=== PATIENT | male | born 1955 | race Caucasian/White ===

== ENCOUNTER → 2016-12-22 | Outpatient (CLI) | payer OTHER ==
[~2016-12-22] MED LIST: PENTAMIDINE ISETHIONATE 300MG/6ML INH SYRINGE NEB ONE
== END ==
LOC: FCP 08:22
PROVIDERS: ATTEND Internal Medicine Hematology & Oncology
PROC: 3E0F7GC Introduction of Other Therapeutic Substance into Respiratory Tract, Via Natural or Artificial Opening (ICD-10-PCS; principal; 2016-12-22)
DX: C90.01 Multiple myeloma in remission (principal); C64.9 Malignant neoplasm of unspecified kidney, except renal pelvis; D64.81 Anemia due to antineoplastic chemotherapy
CPT/HCPCS: J2545

== ENCOUNTER → 2017-01-17 | Outpatient (CLI) | payer OTHER | LOC: FIMAGING 16:54 | PROVIDERS: ATTEND Internal Medicine Hematology & Oncology | DX: N28.1 Cyst of kidney, acquired (principal); Z85.528 Personal history of other malignant neoplasm of kidney; Z90.5 Acquired absence of kidney ==

== ENCOUNTER → 2017-03-30 | Outpatient (CLI) | payer OTHER | LOC: FCP 08:26 | PROVIDERS: ATTEND Internal Medicine Hematology & Oncology | DX: D64.81 Anemia due to antineoplastic chemotherapy (principal); C90.01 Multiple myeloma in remission; C64.9 Malignant neoplasm of unspecified kidney, except renal pelvis | CPT/HCPCS: J2545 ==

== ENCOUNTER → 2017-04-27 | Outpatient (CLI) | payer OTHER ==
[~2017-04-27] MED LIST changes: +D5W IV ONE; +PENTAMIDINE ISETHIONATE IV ONE
== END ==
LOC: FCP 08:14
PROVIDERS: ATTEND Internal Medicine Hematology & Oncology
DX: C90.01 Multiple myeloma in remission (principal)
CPT/HCPCS: J2545

== ENCOUNTER → 2017-06-01 | Outpatient (CLI) | payer OTHER ==
[~2017-06-01] MED LIST changes: -D5W IV ONE; -PENTAMIDINE ISETHIONATE IV ONE
== END ==
LOC: FCP 08:04
PROVIDERS: ATTEND Internal Medicine Hematology & Oncology
PROC: 3E0F7GC Introduction of Other Therapeutic Substance into Respiratory Tract, Via Natural or Artificial Opening (ICD-10-PCS; principal; 2017-06-01)
DX: C64.1 Malignant neoplasm of right kidney, except renal pelvis (principal); C90.01 Multiple myeloma in remission; D64.81 Anemia due to antineoplastic chemotherapy
CPT/HCPCS: J2545

== ENCOUNTER → 2017-06-29 | Outpatient (CLI) | payer OTHER | LOC: FCP 08:21 | PROVIDERS: ATTEND Internal Medicine Hematology & Oncology | PROC: 3E0F7GC Introduction of Other Therapeutic Substance into Respiratory Tract, Via Natural or Artificial Opening (ICD-10-PCS; principal; 2017-06-29) | DX: C64.9 Malignant neoplasm of unspecified kidney, except renal pelvis (principal) | CPT/HCPCS: J2545 ==

== ENCOUNTER → 2017-07-27 | Outpatient (CLI) | payer OTHER | LOC: FCP 08:08 | PROVIDERS: ATTEND Internal Medicine Hematology & Oncology | DX: C90.10 Plasma cell leukemia not having achieved remission (principal) | CPT/HCPCS: J2545 ==

== ENCOUNTER → 2017-09-21 | Outpatient (CLI) | payer OTHER | LOC: FCP 08:24 | PROVIDERS: ATTEND Internal Medicine Hematology & Oncology | DX: Z79.899 Other long term (current) drug therapy (principal) | CPT/HCPCS: J2545 ==

== ENCOUNTER → 2017-10-19 | Outpatient (CLI) | payer OTHER | LOC: FCP 08:03 | PROVIDERS: ATTEND Internal Medicine Hematology & Oncology | DX: Z79.899 Other long term (current) drug therapy (principal) | CPT/HCPCS: J2545 ==

== ENCOUNTER → 2017-11-20 | Outpatient (CLI) | payer OTHER | LOC: FIMAGING 16:28 | PROVIDERS: ATTEND Internal Medicine Hematology & Oncology | DX: R05 Cough (principal); R50.9 Fever, unspecified ==

== ENCOUNTER → 2017-12-18 | Outpatient (CLI) | payer OTHER | LOC: FIMAGING 16:06 | PROVIDERS: ATTEND Internal Medicine Hematology & Oncology | DX: S62.112A Displaced fracture of triquetrum [cuneiform] bone, left wrist, initial encounter for closed fracture (principal); M79.642 Pain in left hand; M79.89 Other specified soft tissue disorders ==